=== PATIENT | female | born 1975 | race Caucasian/White ===

== ENCOUNTER 2021-12-03 14:56 | Emergency (ER) | payer MEDICAID ==
[2021-12-03] MEDS ORDERED: Ketorolac 30 MG/ML SDV IM ONE (16:57)
[2021-12-03] MEDS ORDERED: Ondansetron 4 MG Tab.DIS PO ONE (16:57)
[2021-12-03] MEDS ORDERED: diphenhydrAMINE 50 MG/ML SDV IM ONE (16:58)
== END 2021-12-03 17:19 | disposition home or self-care (01) ==
LOC: JP.ED 14:56
DX: R55 Syncope and collapse (principal); I10 Essential (primary) hypertension; K21.9 Gastro-esophageal reflux disease without esophagitis; Z88.1 Allergy status to other antibiotic agents; Z88.0 Allergy status to penicillin; Z88.7 Allergy status to serum and vaccine; Z88.8 Allergy status to other drugs, medicaments and biological substances
CPT/HCPCS: 96372; 99283; J1200; J1885; Q0162

== ENCOUNTER 2024-04-27 21:51 | Emergency (ER) | payer MEDICAID ==
[2024-04-28] MEDS: Ketorolac 30 MG/ML SDV IM ONE (01:26)
[2024-04-28] MEDS: diphenhydrAMINE 50 MG/ML SDV IVPUSH ONE (01:27)
[2024-04-28] MEDS: Prochlorperazine 10 MG/2 ML SDV IVPUSH ONE (01:27)
[2024-04-28] MEDS: Sodium Chloride 0.9% 1,000 ML IV ONE (01:56)
[2024-04-28] MEDS: Prochlorperazine 10 MG/2 ML SDV IM ONE (01:58)
[2024-04-28] MEDS: diphenhydrAMINE 50 MG/ML SDV IM ONE (01:58)
[2024-04-28] MEDS: Sodium Chloride 0.9% 1,000 ML IV SCH (02:07)
[2024-04-28] MEDS: Haloperidol Lactate 5 MG/ML SDV IVPUSH ONE (03:11)
[2024-04-28] MEDS: Pramipexole 0.5 MG Tab PO ONE (03:58)
[2024-04-28] MEDS: Dexamethasone 4 MG/ML SDV IVPUSH ONE (03:59)
[2024-04-28] MEDS: hydrALAZINE 20 MG/ML SDV IVPUSH ONE (04:47)
== END 2024-04-28 05:31 | disposition home or self-care (01) ==
LOC: JP.ED 21:51
DX: G43.409 Hemiplegic migraine, not intractable, without status migrainosus (principal); I10 Essential (primary) hypertension; Z88.0 Allergy status to penicillin; Z88.1 Allergy status to other antibiotic agents; Z88.7 Allergy status to serum and vaccine; Z88.8 Allergy status to other drugs, medicaments and biological substances; Z79.899 Other long term (current) drug therapy; Z86.73 Personal history of transient ischemic attack (TIA), and cerebral infarction without residual deficits; Z90.49 Acquired absence of other specified parts of digestive tract
CPT/HCPCS: 82947; 96361; 96372; 96374; 96375; 99283; 99284-25; A9270-GY; J0360; J0780; J1100; J1200; J1630; J1885; J7030

== ENCOUNTER 2024-05-23 14:29 | Emergency (ER) | payer SELFPAY ==
[2024-05-23] MEDS ORDERED: Sodium Chloride 0.9% 10 ML Syringe FLUSH PRN (15:07)
[2024-05-23 15:43] LABS: BASOPHILS ABSOLUTE AUTO 0.05 K/uL (0.00-0.10); BASOPHILS PERCENT AUTO 0.5 % (0.1-1.3); EOSINOPHILS ABSOLUTE AUTO 0.18 K/uL (0.00-0.40); EOSINOPHILS PERCENT AUTO 1.8 % (0.0-5.4); HEMATOCRIT 42.9 % (34.3-46.0); HEMOGLOBIN 14.4 g/dL (11.2-15.5); IMMATURE GRAN ABSOLUTE AUTO 0.06 K/uL (0.00-0.23); IMMATURE GRAN PERCENT AUTO 0.6 % (0.0-0.7); LYMPHOCYTES ABSOLUTE AUTO 2.95 K/uL (0.8-3.3); LYMPHOCYTES PERCENT AUTO 28.9 % (11.4-47.7); MEAN CORPUSCULAR HEMOGLOBIN 27.1 pg (31.6-35.5); MEAN CORPUSCULAR HGB CONC 33.6 g/dL (31.6-35.5); MEAN CORPUSCULAR VOLUME 80.6 fL (81.4-99.0); MONOCYTES ABSOLUTE AUTO 0.46 K/uL (0.20-0.90); MONOCYTES PERCENT AUTO 4.5 % (3.3-12.6); NEUTROPHILS ABSOLUTE AUTO 6.51 K/uL (1.0-7.6); NEUTROPHILS PERCENT AUTO 63.7 % (40.0-78.1); PLATELET COUNT,PLT 219 K/uL (130-375); RED BLOOD CELL COUNT 5.32 M/uL (3.77-5.24); WHITE BLOOD CELL COUNT,WBC 10.2 K/uL (3.2-11.0)
[2024-05-23 16:24] LABS: ANION GAP 13.3 mmol/L (5.0-14.0); CALCIUM 9.1 mg/dL (8.5-10.1); EST CRCL DRUG DOSING (CG) 66.18 mL/min; POTASSIUM,K 3.3 mmol/L (3.6-5.2); TROPONIN I HIGH SENSITIVITY 8.1 pg/mL (<=60.3)
[2024-05-23] MEDS: Sodium Chloride 0.9% 100 ML IV SCH (16:54)
[2024-05-23] MEDS: Iopamidol 755 Mg/ML 100 ML Bottle IV SCH (16:54)
[2024-05-23] MEDS: Labetalol 20 MG/4 ML Syringe IVPUSH ONE ×2 (16:55→17:26)
[2024-05-23] MEDS: HYDROmorphone 0.5 MG/0.5 ML Syringe IVPUSH ONE (17:19)
[2024-05-23] MEDS: Ketorolac 15 MG/ML SDV IVPUSH ONE (18:07)
[2024-05-23] MEDS: diphenhydrAMINE 50 MG/ML SDV IVPUSH ONE (18:07)
[2024-05-23] MEDS: Ondansetron 4 MG/2 ML SDV IVPUSH ONE (18:08)
== END 2024-05-23 19:00 | disposition home or self-care (01) ==
LOC: JP.ED 14:29
DX: G43.909 Migraine, unspecified, not intractable, without status migrainosus (principal); I10 Essential (primary) hypertension; Z88.1 Allergy status to other antibiotic agents; Z88.8 Allergy status to other drugs, medicaments and biological substances; Z91.048 Other nonmedicinal substance allergy status; Z79.899 Other long term (current) drug therapy; Z79.890 Hormone replacement therapy; Z90.49 Acquired absence of other specified parts of digestive tract; Z90.710 Acquired absence of both cervix and uterus
CPT/HCPCS: 36415; 70450; 70496; 70498; 80048; 84484; 85025; 93005; 96374; 96375; 99285-25; J1920; Q9967

== ENCOUNTER 2024-05-25 05:50 | Emergency (ER) | payer SELFPAY ==
[2024-05-25] MEDS ORDERED: Sodium Chloride 0.9% 10 ML Syringe FLUSH PRN ×2 (06:28→06:41)
[2024-05-25 06:39] LABS: BASOPHILS ABSOLUTE AUTO 0.06 K/uL (0.00-0.10); BASOPHILS PERCENT AUTO 0.5 % (0.1-1.3); EOSINOPHILS ABSOLUTE AUTO 0.22 K/uL (0.00-0.40); HEMATOCRIT 45.7 % (34.3-46.0); HEMOGLOBIN 15.2 g/dL (11.2-15.5); IMMATURE GRAN ABSOLUTE AUTO 0.07 K/uL (0.00-0.23); IMMATURE GRAN PERCENT AUTO 0.6 % (0.0-0.7); LYMPHOCYTES ABSOLUTE AUTO 2.78 K/uL (0.8-3.3); LYMPHOCYTES PERCENT AUTO 24.8 % (11.4-47.7); MEAN CORPUSCULAR HEMOGLOBIN 26.8 pg (31.6-35.5); MEAN CORPUSCULAR HGB CONC 33.3 g/dL (31.6-35.5); MEAN CORPUSCULAR VOLUME 80.5 fL (81.4-99.0); MONOCYTES ABSOLUTE AUTO 0.45 K/uL (0.20-0.90); NEUTROPHILS ABSOLUTE AUTO 7.62 K/uL (1.0-7.6); NEUTROPHILS PERCENT AUTO 68.1 % (40.0-78.1); PLATELET COUNT,PLT 174 K/uL (130-375); RED BLOOD CELL COUNT 5.68 M/uL (3.77-5.24); WHITE BLOOD CELL COUNT,WBC 11.2 K/uL (3.2-11.0)
[2024-05-25] MEDS: diphenhydrAMINE 50 MG/ML SDV IVPUSH ONE (06:58)
[2024-05-25] MEDS: droPERidol 5 MG/2 ML SDV IVPUSH ONE (06:58)
[2024-05-25] MEDS: Sodium Chloride 0.9% 1,000 ML IV SCH (06:59)
[2024-05-25] MEDS: Acetaminophen 1,000 MG in Premix Bag 1 BAG IV ONE (06:59)
[2024-05-25 07:05] LABS: ANION GAP 10.3 mmol/L (5.0-14.0); CALCIUM 9.8 mg/dL (8.5-10.1); CREATININE 0.8 mg/dL (0.6-1.0); EST CRCL DRUG DOSING (CG) 82.72 mL/min; POTASSIUM,K 3.6 mmol/L (3.6-5.2); TROPONIN I HIGH SENSITIVITY 7.8 pg/mL (<=60.3)
[2024-05-25] MEDS: LORazepam 2 MG/ML SDV IVPUSH ONE (08:47)
[2024-05-25] MEDS ORDERED: Gadoteridol 279.3 MG/ML 20 ML SDV IV SCH (09:15)
[2024-05-25] MEDS: Ketorolac 30 MG/ML SDV IVPUSH ONE (09:49)
[2024-05-25] MEDS: Ondansetron 4 MG/2 ML SDV IVPUSH ONE (09:50)
== END 2024-05-25 11:36 | disposition home or self-care (01) ==
LOC: JP.ED 05:50
DX: G43.909 Migraine, unspecified, not intractable, without status migrainosus (principal); I10 Essential (primary) hypertension; Z90.49 Acquired absence of other specified parts of digestive tract; Z90.710 Acquired absence of both cervix and uterus; Z88.0 Allergy status to penicillin; Z88.7 Allergy status to serum and vaccine; Z88.8 Allergy status to other drugs, medicaments and biological substances; Z91.048 Other nonmedicinal substance allergy status; Z79.01 Long term (current) use of anticoagulants; Z79.899 Other long term (current) drug therapy
CPT/HCPCS: 36415; 70450; 80048; 84484; 85025; 96361; 96374; 96375; 99285; J0131; J1200; J1790; J1885; J2060; J2405; J7030

== ENCOUNTER 2024-05-25 23:55 | Emergency (ER) | payer SELFPAY ==
[2024-05-26 00:15] LABS: BASOPHILS ABSOLUTE AUTO 0.05 K/uL (0.00-0.10); BASOPHILS PERCENT AUTO 0.5 % (0.1-1.3); EOSINOPHILS ABSOLUTE AUTO 0.22 K/uL (0.00-0.40); HEMATOCRIT 41.7 % (34.3-46.0); HEMOGLOBIN 14.1 g/dL (11.2-15.5); IMMATURE GRAN ABSOLUTE AUTO 0.08 K/uL (0.00-0.23); IMMATURE GRAN PERCENT AUTO 0.7 % (0.0-0.7); LYMPHOCYTES ABSOLUTE AUTO 3.65 K/uL (0.8-3.3); LYMPHOCYTES PERCENT AUTO 33.5 % (11.4-47.7); MEAN CORPUSCULAR HGB CONC 33.8 g/dL (31.6-35.5); MEAN CORPUSCULAR VOLUME 79.9 fL (81.4-99.0); MONOCYTES ABSOLUTE AUTO 0.54 K/uL (0.20-0.90); NEUTROPHILS ABSOLUTE AUTO 6.35 K/uL (1.0-7.6); NEUTROPHILS PERCENT AUTO 58.3 % (40.0-78.1); PLATELET COUNT,PLT 291 K/uL (130-375); RED BLOOD CELL COUNT 5.22 M/uL (3.77-5.24); WHITE BLOOD CELL COUNT,WBC 10.9 K/uL (3.2-11.0)
[2024-05-26 00:35] LABS: INR 0.9; PROTHROMBIN TIME 9.6 sec (9.2-10.6); PTT,PARTIAL THROMBOPLSTIN TIME 25.3 sec (21.8-27.3)
[2024-05-26 00:38] LABS: A/G RATIO 0.9 (1.2-2.2); ALANINE AMINOTRANSFERASE,ALT 22 U/L (12-78); ALBUMIN 3.1 g/dL (3.4-5.0); ALKALINE PHOSPHATASE 127 U/L (46-116); ANION GAP 8.6 mmol/L (5.0-14.0); ASPARTATE AMNIOTRANSFERASE,AST 19 U/L (15-37); BILIRUBIN TOTAL 0.2 mg/dL (0.2-1.0); BLOOD UREA NITROGEN,BUN 19 mg/dL (7-18); CARBON DIOXIDE,CO2 25 mmol/L (21-32); CHLORIDE,CL 106 mmol/L (100-108); CREATININE 1.1 mg/dL (0.6-1.0); EST CRCL DRUG DOSING (CG) 60.16 mL/min; ESTIMATED GFR 62 mL/min (>60); GLUCOSE RANDOM 127 mg/dL (74-106); POTASSIUM,K 3.6 mmol/L (3.6-5.2); PROTEIN TOTAL,TP 6.7 g/dL (6.4-8.2); SODIUM,NA 140 mmol/L (140-148)
[2024-05-26] MEDS: Labetalol 20 MG/4 ML Syringe IVPUSH ONE (01:05)
[2024-05-26] MEDS: Sodium Chloride 0.9% 10 ML Syringe FLUSH PRN (01:06)
[2024-05-26] MEDS: diphenhydrAMINE 50 MG/ML SDV IVPUSH ONE (01:18)
[2024-05-26] MEDS: Ondansetron 4 MG/2 ML SDV IVPUSH ONE (01:35)
[2024-05-26] MEDS: HYDROmorphone 0.5 MG/0.5 ML Syringe IVPUSH ONE (02:27)
[2024-05-26] MEDS: Metoprolol Tartrate 50 MG Tab PO ONE (03:17)
== END 2024-05-26 04:40 | disposition home or self-care (01) ==
LOC: JP.ED 23:55
DX: G43.409 Hemiplegic migraine, not intractable, without status migrainosus (principal); I10 Essential (primary) hypertension; Z88.7 Allergy status to serum and vaccine; Z88.1 Allergy status to other antibiotic agents; Z88.0 Allergy status to penicillin; Z91.048 Other nonmedicinal substance allergy status; Z79.01 Long term (current) use of anticoagulants; Z79.899 Other long term (current) drug therapy; Z86.73 Personal history of transient ischemic attack (TIA), and cerebral infarction without residual deficits
CPT/HCPCS: 36415; 70450; 80053; 84484; 85025; 85610; 85730; 93005; 96374; 96375; 99285; A9270; J1200; J1920; J2405; 93010; 99284

== ENCOUNTER 2024-05-27 00:18 | Emergency (ER) | payer SELFPAY ==
[2024-05-27] MEDS: diphenhydrAMINE 50 MG/ML SDV IM ONE (01:05)
[2024-05-27] MEDS: methylPREDNISolone Sodium Succinate 125 MG/2 ML SDV IM ONE (01:10)
[2024-05-27] MEDS: diphenhydrAMINE 50 MG/ML SDV IVPUSH ONE (01:12)
[2024-05-27] MEDS: methylPREDNISolone Sodium Succinate 125 MG/2 ML SDV IVPUSH ONE (01:12)
== END 2024-05-27 01:53 | disposition left against medical advice (07) ==
LOC: JP.ED 00:18
DX: R06.2 Wheezing (principal); I10 Essential (primary) hypertension; Z88.8 Allergy status to other drugs, medicaments and biological substances; Z88.0 Allergy status to penicillin; Z88.7 Allergy status to serum and vaccine; Z91.048 Other nonmedicinal substance allergy status; Z79.899 Other long term (current) drug therapy; Z79.01 Long term (current) use of anticoagulants; Z86.16 Personal history of COVID-19; Z90.710 Acquired absence of both cervix and uterus; Z90.49 Acquired absence of other specified parts of digestive tract
CPT/HCPCS: 96372; 99284; J1200; J2919

== ENCOUNTER 2024-08-19 11:10 | Emergency (ER) | payer SELFPAY ==
[2024-08-19] MEDS: Ondansetron 4 MG/2 ML SDV IVPUSH ONE (13:19)
[2024-08-19 14:11] LABS: APPEARANCE,URINE SLIGHTLY CLOUDY (CLEAR); GLUCOSE,URINE NEGATIVE (NEGATIVE); OCCULT BLOOD,URINE MODERATE (NEGATIVE)
[2024-08-19 14:34] LABS: EPITHELIAL CELLS,URINE FEW
== END 2024-08-19 15:53 | disposition home or self-care (01) ==
LOC: JP.ED 11:10
DX: R10.9 Unspecified abdominal pain (principal); I10 Essential (primary) hypertension; Z88.0 Allergy status to penicillin; Z88.8 Allergy status to other drugs, medicaments and biological substances; Z79.899 Other long term (current) drug therapy; Z86.16 Personal history of COVID-19; Z90.49 Acquired absence of other specified parts of digestive tract; Z90.710 Acquired absence of both cervix and uterus
CPT/HCPCS: 74176; 81001; 96361; 96374; 96375; 99284; A9270; J1171; J2405; J7030; 99283

== ENCOUNTER 2024-08-21 15:14 | Emergency (ER) | payer SELFPAY ==
[2024-08-21] MEDS: Ondansetron 4 MG/2 ML SDV IVPUSH ONE (19:02)
[2024-08-21] MEDS: Ketorolac 30 MG/ML SDV IVPUSH ONE (19:13)
== END 2024-08-21 20:00 | disposition home or self-care (01) ==
LOC: JP.ED 15:14
DX: R55 Syncope and collapse (principal); R51.9 Headache, unspecified; E86.0 Dehydration; I10 Essential (primary) hypertension; Z88.0 Allergy status to penicillin; Z88.8 Allergy status to other drugs, medicaments and biological substances; Z88.7 Allergy status to serum and vaccine; Z79.899 Other long term (current) drug therapy; Z86.16 Personal history of COVID-19; Z90.710 Acquired absence of both cervix and uterus; Z90.49 Acquired absence of other specified parts of digestive tract
CPT/HCPCS: 96361; 96374; 96375; 99283; J1885; J2405; J7030

== ENCOUNTER 2024-12-07 15:20 | Emergency (ER) | payer SELFPAY ==
[2024-12-07] MEDS: Ketorolac 30 MG/ML SDV IM ONE (16:21)
== END 2024-12-07 17:44 | disposition home or self-care (01) ==
LOC: JP.ED 15:20
DX: G43.909 Migraine, unspecified, not intractable, without status migrainosus (principal); I10 Essential (primary) hypertension; J45.909 Unspecified asthma, uncomplicated; Z86.73 Personal history of transient ischemic attack (TIA), and cerebral infarction without residual deficits; Z86.16 Personal history of COVID-19; Z79.899 Other long term (current) drug therapy; Z88.8 Allergy status to other drugs, medicaments and biological substances; Z88.7 Allergy status to serum and vaccine; Z88.0 Allergy status to penicillin; Z91.048 Other nonmedicinal substance allergy status
CPT/HCPCS: 96372; 99283; J1790; J1885

== ENCOUNTER 2024-12-08 19:59 | Emergency (ER) | payer SELFPAY ==
[2024-12-08] MEDS: Nitroglycerin 0.4 MG Tab.SL SL PRN (21:08)
[2024-12-08 21:13] LABS: BASOPHILS ABSOLUTE AUTO 0.05 K/uL (0.00-0.10); BASOPHILS PERCENT AUTO 0.5 % (0.1-1.3); EOSINOPHILS ABSOLUTE AUTO 0.31 K/uL (0.00-0.40); EOSINOPHILS PERCENT AUTO 3.2 % (0.0-5.4); IMMATURE GRAN ABSOLUTE AUTO 0.03 K/uL (0.00-0.23); IMMATURE GRAN PERCENT AUTO 0.3 % (0.0-0.7); LYMPHOCYTES ABSOLUTE AUTO 3.39 K/uL (0.8-3.3); LYMPHOCYTES PERCENT AUTO 34.7 % (11.4-47.7); MONOCYTES ABSOLUTE AUTO 0.48 K/uL (0.20-0.90); MONOCYTES PERCENT AUTO 4.9 % (3.3-12.6); NEUTROPHILS ABSOLUTE AUTO 5.51 K/uL (1.0-7.6); NEUTROPHILS PERCENT AUTO 56.4 % (40.0-78.1); PLATELET COUNT,PLT 303 K/uL (130-375); RED BLOOD CELL COUNT 4.82 M/uL (3.77-5.24); WHITE BLOOD CELL COUNT,WBC 9.8 K/uL (3.2-11.0)
[2024-12-08 21:37] LABS: A/G RATIO 1.1 (1.2-2.2); ALANINE AMINOTRANSFERASE,ALT 24 U/L (12-78); ASPARTATE AMNIOTRANSFERASE,AST 28 U/L (15-37); BILIRUBIN TOTAL 0.2 mg/dL (0.2-1.0); BLOOD UREA NITROGEN,BUN 16 mg/dL (7-18); CARBON DIOXIDE,CO2 23 mmol/L (21-32); CHLORIDE,CL 107 mmol/L (100-108); CREATININE 0.8 mg/dL (0.6-1.0); EST CRCL DRUG DOSING (CG) 79.63 mL/min; ESTIMATED GFR 90 mL/min (>60); GLUCOSE RANDOM 101 mg/dL (74-106); POTASSIUM,K 3.8 mmol/L (3.6-5.2); PROTEIN TOTAL,TP 6.9 g/dL (6.4-8.2); SODIUM,NA 140 mmol/L (140-148)
[2024-12-08] MEDS: Ketorolac 30 MG/ML SDV IVPUSH ONE (22:04)
[2024-12-08] MEDS: LORazepam 2 MG/ML SDV IVPUSH ONE (22:21)
== END 2024-12-08 23:43 | disposition home or self-care (01) ==
LOC: JP.ED 19:59
DX: R07.9 Chest pain, unspecified (principal); I10 Essential (primary) hypertension; E86.0 Dehydration; J45.909 Unspecified asthma, uncomplicated; Z86.16 Personal history of COVID-19; Z90.49 Acquired absence of other specified parts of digestive tract; Z90.710 Acquired absence of both cervix and uterus; Z88.0 Allergy status to penicillin; Z88.7 Allergy status to serum and vaccine; Z88.8 Allergy status to other drugs, medicaments and biological substances; Z91.048 Other nonmedicinal substance allergy status; Z79.899 Other long term (current) drug therapy
CPT/HCPCS: 36415; 80053; 84484; 85025; 93005; 96374; 96375; 99285; A9270; J1885; J2060; 93010; 99284